=== PATIENT | female | born 1995 | race Asian ===

== ENCOUNTER 2016-08-17 19:40 | Emergency (ER) | payer BC, MEDICAID ==
[2016-08-17] MEDS ORDERED: predniSONE 20 MG TABLET PO STA (21:04)
[2016-08-17] MEDS ORDERED: diphenhydrAMINE 25 MG CAPSULE PO STA (21:04)
[2016-08-17] MEDS ORDERED: FAMOTIDINE 20 MG TABLET PO STA (21:04)
[2016-08-17] MEDS ORDERED: diphenhydrAMINE 25 MG CAPSULE PO ONE (21:11)
[2016-08-17] MEDS ORDERED: FAMOTIDINE 20 MG TABLET ONE (21:12)
[2016-08-17] MEDS ORDERED: predniSONE 20 MG TABLET ONE (21:12)
== END 2016-08-17 22:13 | disposition home or self-care (01) ==
DX: L50.9 Urticaria, unspecified (principal)
CPT/HCPCS: 81025; 99283; 99284; A9270; J7512

== ENCOUNTER 2018-10-31 19:48 | Emergency (ER) | payer BC, MEDICAID ==
--- NOTE | 2018-10-31 22:37 | ED Physician Documentation ---
PD HPI FEMALE - Stated complaint Stated Complaint: FEMALE - Chief complaint Chief Complaint: Abd Pain - Additional information Additional information: 22-year-old female presents the emergency department with a complaint of a hemorrhoid which developed today. No rectal bleeding. No attempts at symptom management. No other area of discomfort. No triggering factors. No relieving factors Review of Systems Constitutional: denies: Fever Eyes: denies: Loss of vision Ears: denies: Ear pain Nose: denies: Congestion GI: denies: Abdominal Pain : reports: Other (rectal pain). denies: Dysuria PD PAST MEDICAL HISTORY - Past Medical History Past Medical History: Yes Cardiovascular: None Endocrine/Autoimmune: None GI: None : None HEENT: None Psych: Anxiety Musculoskeletal: None Derm: None - Past Surgical History Past Surgical History: Yes - Present Medications Home Medications: Ambulatory Orders Medication Instructions Recorded Confirmed Hydrocortisone [Anusol-Hc] 30 gm RC BID PRN #20 cream..g. 10/31/18 - Allergies Allergies/Adverse Reactions: Allergies Allergy/AdvReac Type Severity Reaction Status Date / Time No Known Drug Allergies Allergy Verified 10/31/18 20:03 - Social History Does the pt smoke?: No Smoking Status: Never smoker Does the pt drink ETOH?: No Does the pt have substance abuse?: No - Immunizations Immunizations are current?: Yes - POLST Patient has POLST: No PD ED PE NORMAL - General General: Alert and oriented X 3, No acute distress - HEENT HEENT: Atraumatic, PERRL, EOMI, Ears normal - Abdomen Abdomen: Soft, Non tender - Rectal Rectal: Other (There is a hemorrhoid, which is nonthrombosed it does appear inflamed. There is no active bleeding) - Derm Derm: Normal color - Extremities Extremities: No deformity - Neuro Neuro: Alert and oriented X 3, Normal speech Results - Vitals Vitals: Vital Signs - 24 hr 10/31/18 10/31/18 19:59 22:47 Temperature 36.9 C Heart Rate 100 89 Respiratory 16 Rate Blood Pressure 132/73 H 124/90 H O2 Saturation 100 100 Oxygen O2 Source Room air PD MEDICAL DECISION MAKING - ED course ED course: The patient has an acute hemorrhoid, there is no thrombosis that would benefit from incision and drainage at this point. Presently the patient appears appropriate for discharge and ongoing outpatient management. Patient will follow-up primary care for reevaluation and will return to the emergency department for any worsening or concerns Departure - Departure Disposition: 01 Home, Self Care Clinical Impression: Hemorrhoid Qualifiers: Hemorrhoid type: unspecified Qualified Code(s): K64.9 - Unspecified hemorrhoids Condition: Good Instructions: ED Hemorrhoids Follow-Up: Elen Phillip ARNP [Primary Care Provider] - Within 1 week Prescriptions: Hydrocortisone [Anusol-Hc] 30 gm RC BID PRN #20 cream..g. PRN Reason: Hemorrhoids Comments: Please return to the emergency department for worsening symptoms or any concerns Discharge Date/Time: 10/31/18 22:48
[2018-10-31 22:48] VITALS: BP 124/90
== END 2018-10-31 22:48 | disposition home or self-care (01) ==
LOC: ED 19:48
DX: K64.9 Unspecified hemorrhoids (principal)
CPT/HCPCS: 99282; 99283

== ENCOUNTER 2018-11-11 13:55 | Outpatient (CLI) | payer MEDICAID ==
[2018-11-11 19:08] LABS: THYROID STIMULATING HORMONE 1.73 uIU/mL (0.34-5.60)
[2018-11-11 19:13] LABS: PROLACTIN 24.22 ng/mL
[2018-11-11 19:35] LABS: FOLLICLE STIMULATING HORMONE 1.88 mIU/mL
[2018-11-11 19:36] LABS: LUTEINIZING HORMONE 6.76 mIU/mL
== END 2018-11-11 23:59 | disposition home or self-care (01) ==
LOC: LAB.WCP 13:55
PROVIDERS: ATTEND Obstetrics & Gynecology
DX: E28.2 Polycystic ovarian syndrome (principal)
CPT/HCPCS: 36415; 81599; 82627; 83001; 83002; 84146; 84402; 84403; 84443

== ENCOUNTER 2019-02-28 15:41 | Outpatient (CLI) | payer MEDICAID ==
--- NOTE | 2019-02-28 17:19 | Ultrasound Report ---
Reason: HX OF ECTOPIC , TEST POSITIVE Procedure Date: 02/28/2019 Accession Number: [id number] / [id number] Procedure: US - OB First Trimester CPT Code: FULL RESULT: EXAM: FIRST TRIMESTER OBSTETRIC ULTRASOUND (Less than 11 weeks) EXAM DATE: 02/28/2019 03:50 PM. CLINICAL HISTORY: HX OF ECTOPIC , TEST POSITIVE. LMP: 01/07/2019. COMPARISONS: OB FIRST TRIMESTER 05/15/2016 8:00 PM. TECHNIQUE: Transabdominal and transvaginal ultrasound examination with static image documentation. CLINICAL DATES: EGA 7 weeks 3 days with EMELY 10/14/2019 based on LMP. ASSESSMENT: Gestational Sac: Single intrauterine. Embryo: CRL (crown-rump length) 10 mm = 7 weeks 0 days. Cardiac activity: 155 beats per minute. Yolk sac: 4.3 mm. Amniotic fluid: Not accurately assessed at this gestational age. Early placenta: Not visible at this gestational age. Other: No perigestational fluid collection demonstrated. MATERNAL STRUCTURES: Uterus: Anteverted. Solid structure the posterior uterus measuring 3.7 cm likely reflects a fibroid.. Cervix: Closed. Bilateral ovaries appear unremarkable. Free Fluid: None. Other: None. IMPRESSION: 1. Single viable intrauterine at EGA 7 weeks 0 days with EMELY 10/17/2019 based on crown-rump length, which is concordant with clinical dates. 2. Assigned dating is EMELY 10/14/2019 based on LMP. JAZMÍN
== END 2019-02-28 15:42 | disposition home or self-care (01) ==
LOC: DI 15:41
PROVIDERS: ATTEND Nurse Practitioner Obstetrics & Gynecology
DX: Z32.01 Encounter for pregnancy test, result positive (principal); Z87.59 Personal history of other complications of pregnancy, childbirth and the puerperium
CPT/HCPCS: 76801; 76817

== ENCOUNTER 2019-03-19 12:50 | Outpatient (CLI) | payer MEDICAID ==
[2019-03-19 15:07] LABS: MUDS CUTOFF CONCENTRATIONS CUTOFF CONC BELOW:
[2019-03-19 15:13] LABS: BILIRUBIN,URINE NEGATIVE (NEGATIVE); GLUCOSE, URINE (UA) NEGATIVE (NEGATIVE); KETONES,URINE (UA) NEGATIVE (NEGATIVE); LEUKOCYTE ESTERASE, URINE NEGATIVE (NEGATIVE); NITRITE,URINE NEGATIVE (NEGATIVE); OCCULT BLOOD,URINE NEGATIVE (NEGATIVE); PROTEIN,URINE NEGATIVE (NEGATIVE); UROBILINOGEN,URINE 0.2 (NORMAL) E.U./dL (NORMAL)
[2019-03-19 15:29] LABS: AMORPHOUS SEDIMENT,UR Marked /LPF; BACTERIA,URINE None Seen /HPF (None Seen); CLARITY,URINE CLEAR (CLEAR); RBC,URINE None Seen /HPF (0-5); SQUAMOUS EPITHELIAL CELL,UR MANY Squamous (<= Few)
[2019-03-19 15:31] LABS: AMPHETAMINE SCREEN,URINE NEGATIVE (NEGATIVE); BENZODIAZEPINES SCREEN, URINE NEGATIVE (NEGATIVE); COCAINE SCREEN URINE NEGATIVE (NEGATIVE); METHADONE SCREEN, URINE NEGATIVE (NEGATIVE); METHAMPHETAMINES SCREEN, URINE NEGATIVE (NEGATIVE); OPIATE SCREEN, URINE NEGATIVE (NEGATIVE); OXYCODONE SCREEN, URINE NEGATIVE (NEGATIVE); PROPOXYPHENE SCREEN, URINE NEGATIVE (NEGATIVE); TRICYCLIC ANTIDEPRESSANT,URINE NEGATIVE (NEGATIVE)
[2019-03-19 21:22] LABS: TRICHOMONAS VAGINALIS DNA NEGATIVE (NEGATIVE)
== END 2019-03-19 23:59 | disposition home or self-care (01) ==
LOC: LAB.R 12:50
PROVIDERS: ATTEND Nurse Practitioner Obstetrics & Gynecology
DX: Z36.89 Encounter for other specified antenatal screening (principal)
CPT/HCPCS: 80306; 81001; 87086; 87491; 87591; 87661

== ENCOUNTER 2019-04-16 12:05 | Outpatient (CLI) | payer MEDICAID ==
[2019-04-16 12:46] LABS: BASOPHILS % (AUTO) 0.4 %; EOSINOPHILS # (AUTO) 0.1 10^3/uL (0.0-0.7); EOSINOPHILS % (AUTO) 0.6 %; HGB - HEMOGLOBIN 13.2 g/dL (12.0-16.0); LYMPHOCYTES # (AUTO) 2.7 10^3/uL (1.5-3.5); LYMPHOCYTES % (AUTO) 27.5 %; MEAN CORPUSCULAR HEMOGLOBIN 30.6 pg (27.0-31.0); MEAN CORPUSCULAR HGB CONC 33.5 g/dL (32.0-36.0); MEAN CORPUSCULAR VOLUME 91.2 fL (81.0-99.0); MONOCYTES # (AUTO) 0.6 10^3/uL (0.0-1.0); NEUTROPHILS # (AUTO) 6.5 10^3/uL (1.5-6.6); NEUTROPHILS % (AUTO) 65.1 %; PLT - PLATELET COUNT 258 10^3/uL (130-450); RED BLOOD COUNT 4.32 10^6/uL (4.20-5.40); RED CELL DISTRIBUTION WIDTH 13.9 % (12.0-15.0)
[2019-04-17 11:26] LABS: HEPATITIS C ANTIBODY NON-REACTIVE (NON-REACTIVE)
[2019-04-17 11:27] LABS: HEPATITIS B SURFACE ANTIGEN NON-REACTIVE (NON-REACTIVE)
[2019-04-17 11:42] LABS: HIV AG/AB 4TH GEN NON-REACTIVE (NON-REACTIVE)
== END 2019-04-16 12:06 | disposition home or self-care (01) ==
LOC: LAB 12:05
PROVIDERS: ATTEND Nurse Practitioner Obstetrics & Gynecology
DX: Z36.89 Encounter for other specified antenatal screening (principal)
CPT/HCPCS: 36415; 81599; 85025; 86592; 86762; 86803; 86850; 86900; 86901; 87340; 87389

== ENCOUNTER 2019-05-14 08:00 | Outpatient (CLI) | payer MEDICAID | END 2019-05-14 23:59 | disposition home or self-care (01) | LOC: LAB.R 08:00 | PROVIDERS: ATTEND Nurse Practitioner Obstetrics & Gynecology | DX: R82.79 Other abnormal findings on microbiological examination of urine (principal) | CPT/HCPCS: 87086 ==

== ENCOUNTER 2019-05-15 08:00 | Outpatient (CLI) | payer MEDICAID | END 2019-05-15 08:01 | disposition home or self-care (01) | LOC: LAB.WCP 08:00 | PROVIDERS: ATTEND Nurse Practitioner Obstetrics & Gynecology | DX: Z36.8A Encounter for antenatal screening for other genetic defects (principal) | CPT/HCPCS: 36415; 81511; 81599 ==

== ENCOUNTER 2019-05-26 13:37 | Outpatient (CLI) | payer MEDICAID ==
--- NOTE | 2019-05-28 11:20 | Ultrasound Report ---
Reason: SCREENING Procedure Date: 05/26/2019 Accession Number: [id number] / [id number] Procedure: US - OB Detailed Eval CPT Code: FULL RESULT: EXAM: COMPLETE OBSTETRICAL ULTRASOUND EXAM DATE: 05/26/2019 04:42 PM. CLINICAL HISTORY: anatomic survey. COMPARISON: OB FIRST TRIMESTER 02/28/2019 3:50 PM. TECHNIQUE: Real-time sonographic evaluation of the fetus performed by the wood dowel machine operator. Multiple nutrition representative static images were saved for review. DATING: Established EGA 19 weeks 6 days with EMELY 10/14/2019 based on LMP/working due date. EGA 19 weeks 3 days with EMELY 10/17/2019 based on prior ultrasound. EGA 19 weeks 2 days with EMELY 10/18/2019 based on the current ultrasound. GENERAL EVALUATION [place] . Cardiac activity: 145 bpm. movement: Visualized. Presentation: Cephalic. Placenta: Anterior position. No evidence for previa. Umbilical cord: 3 vessel cord. Central placental cord origin. Amniotic fluid: Subjectively normal. MVP 3.9 cm and JACKIE 14.0 cm. BIOMETRY Bi-Parietal Diameter (BPD): 4.4 cm, 19 weeks 4 days Head Circumference (HC): 16.87 cm, 19 weeks 4 days Abdominal Circumference (AC): 14.19 cm, 19 weeks 4 days Femur Length (FL): 3.0 cm, 19 weeks 3 days Estimated Weight: 296 g, 26.4th percentile for 19 weeks 6 days. ANATOMY The intracranial structures, spine, stomach, abdominal wall and cord insertion, diaphragm, kidneys, bladder, and extremities were visualized and demonstrate no abnormality. The profile, face/nose/lips and cardiac four-chamber view as well as ventricular outflow tracts were not well seen as the fetus stayed spine up with the knees pulled to the chest throughout the majority of the examination. MATERNAL STRUCTURES Uterus: Unremarkable. Cervix: Long and closed. Transabdominal length 4.3 cm. Right ovary/adnexa: Unremarkable. Left ovary/adnexa: Unremarkable. Free fluid: None. IMPRESSION: 1. [place] live intrauterine with gestational age 19 weeks 6 days based on LMP/working due date. 2. Estimated weight is within expected limits for assigned dating. 3. Inadequate visualization of heart and outflow tract as well as face/profile and nasal bone view. No anatomic abnormalities are detected at this time. RADIA
== END 2019-05-26 13:38 | disposition home or self-care (01) ==
LOC: DI 13:37
PROVIDERS: ATTEND Obstetrics & Gynecology
DX: Z36.89 Encounter for other specified antenatal screening (principal)
CPT/HCPCS: 76811

== ENCOUNTER 2019-06-10 13:45 | Outpatient (CLI) | payer MEDICAID ==
[2019-06-11 18:42] LABS: CANDIDA GROUP DNA NEGATIVE (NEGATIVE); CANDIDA KRUSEI DNA NEGATIVE (NEGATIVE); TRICHOMONAS VAGINALIS DNA NEGATIVE (NEGATIVE)
== END 2019-06-10 23:59 | disposition home or self-care (01) ==
LOC: LAB.R 13:45
PROVIDERS: ATTEND Nurse Practitioner Obstetrics & Gynecology
DX: N89.8 Other specified noninflammatory disorders of vagina (principal)
CPT/HCPCS: 87661; 87801

== ENCOUNTER 2019-06-24 11:35 | Outpatient (CLI) | payer MEDICAID ==
--- NOTE | 2019-06-24 16:10 | Ultrasound Report ---
Reason: SUPERVISION OF , F/U FAS Procedure Date: 06/24/2019 Accession Number: [id number] / [id number] Procedure: US - OB F/U or Repeat CPT Code: Final Report FULL RESULT: EXAM: FOLLOW-UP OBSTETRICAL ULTRASOUND EXAM DATE: 06/24/2019 11:51 AM. CLINICAL HISTORY: Supervision of , follow-up anatomic survey. COMPARISON: OB DETAILED EVAL 05/26/2019 2:34 PM. TECHNIQUE: Real-time sonographic evaluation of the fetus performed by the lime kiln worker. Multiple outside energy sales representatives static images were saved for review. DATING: Established EGA 24 weeks 0 days with EMELY 10/14/2019 based on physician stated. EGA 23 weeks 4 days with EMELY 10/17/2019 based on ultrasound 02/28/2019. GENERAL EVALUATION [place] . Cardiac activity: 159 bpm. movement: Visualized. Presentation: Breech. Placenta: Anterior position. Amniotic fluid: Normal. JACKIE 15.3 cm. MVP 4.9 cm. BIOMETRY Not reperformed since 05/26/2019. ANATOMY Normal appearance to profile, coronal face, four-chamber heart view and left ventricular outflow tract. Once again, suboptimal visualization of the right ventricular outflow tract. MATERNAL STRUCTURES Not reevaluated today. IMPRESSION: 1. [place] live intrauterine with gestational age 24 weeks 0 days based on physician dating. 2. Suboptimal visualization of the right ventricular outflow tract. Consider short interval follow-up. 3. Other structures previously not well seen at anatomic survey 05/26/2019 appear normal, as detailed above. RADIA
== END 2019-06-24 11:36 | disposition home or self-care (01) ==
LOC: DI 11:35
PROVIDERS: ATTEND Nurse Practitioner Obstetrics & Gynecology
DX: Z36.89 Encounter for other specified antenatal screening (principal)
CPT/HCPCS: 76816

== ENCOUNTER 2019-07-09 12:33 | Outpatient (CLI) | payer MEDICAID ==
--- NOTE | 2019-07-09 14:56 | Ultrasound Report ---
Reason: OB FAS F/U, SUPERVISION OF Procedure Date: 07/09/2019 Accession Number: [id number] / [id number] Procedure: US - OB F/U or Repeat CPT Code: Final Report FULL RESULT: EXAM: FOLLOW-UP OBSTETRICAL ULTRASOUND EXAM DATE: 07/09/2019 02:33 PM. CLINICAL HISTORY: OB follow-up, targeted anatomy (incomplete visualization of right ventricular outflow tract). COMPARISON: 06/24/2019. TECHNIQUE: Real-time sonographic evaluation of the fetus performed by the value stream leader. Multiple representative government relations static images were saved for review. FINDINGS: GENERAL EVALUATION [place] . Cardiac activity: 153 bpm. movement: Visualized. Presentation: Cephalic. Placenta: Anterior position. Amniotic fluid: Normal. JACKIE 14.5 cm. MVP 4.0 cm. ANATOMY Targeted evaluation of the heart confirms normal RVOT, LVOT and four-chamber heart. IMPRESSION: 1. Live intrauterine fetus in cephalic presentation. 2. Normal RVOT. RADIA
== END 2019-07-09 12:34 | disposition home or self-care (01) ==
LOC: DI 12:33
PROVIDERS: ATTEND Nurse Practitioner Obstetrics & Gynecology
DX: Z34.90 Encounter for supervision of normal pregnancy, unspecified, unspecified trimester (principal)
CPT/HCPCS: 76816

== ENCOUNTER 2019-07-11 08:00 | Outpatient (CLI) | payer MEDICAID ==
[2019-07-11 17:35] LABS: CANDIDA GROUP DNA NEGATIVE (NEGATIVE); CANDIDA KRUSEI DNA NEGATIVE (NEGATIVE); TRICHOMONAS VAGINALIS DNA NEGATIVE (NEGATIVE)
== END 2019-07-11 23:59 | disposition home or self-care (01) ==
LOC: LAB.R 08:00
PROVIDERS: ATTEND Nurse Practitioner Obstetrics & Gynecology
DX: N76.0 Acute vaginitis (principal)
CPT/HCPCS: 87661; 87801

== ENCOUNTER 2019-09-16 08:00 | Outpatient (CLI) | payer MEDICAID ==
[2019-09-16 18:29] LABS: TRICHOMONAS VAGINALIS DNA NEGATIVE (NEGATIVE)
== END 2019-09-16 23:59 | disposition home or self-care (01) ==
LOC: LAB.R 08:00
PROVIDERS: ATTEND Nurse Practitioner Obstetrics & Gynecology
DX: Z36.85 Encounter for antenatal screening for Streptococcus B (principal); Z11.3 Encounter for screening for infections with a predominantly sexual mode of transmission
CPT/HCPCS: 87491; 87591; 87661; 87797

== ENCOUNTER 2019-10-01 14:24 | Outpatient (CLI) | payer MEDICAID ==
[2019-10-01 14:45] LABS: HGB - HEMOGLOBIN 11.1 g/dL (12.0-16.0); MEAN CORPUSCULAR HEMOGLOBIN 25.8 pg (27.0-31.0); MEAN CORPUSCULAR HGB CONC 30.8 g/dL (32.0-36.0); MEAN CORPUSCULAR VOLUME 83.5 fL (81.0-99.0); MEAN PLATELET VOLUME 9.5 fL (7.9-10.8); RED BLOOD COUNT 4.31 10^6/uL (4.20-5.40); RED CELL DISTRIBUTION WIDTH 13.6 % (12.0-15.0); WHITE BLOOD COUNT 10.8 x10^3/uL (4.8-10.8)
[2019-10-01 15:00] LABS: ALBUMIN 2.6 g/dL (3.2-5.5); ALBUMIN/GLOBULIN RATIO 0.7 (1.0-2.2); BILIRUBIN,TOTAL 0.2 mg/dL (0.2-1.0); CALCIUM 8.7 mg/dL (8.5-10.3); CREATININE 0.7 mg/dL (0.4-1.0); TOTAL PROTEIN 6.1 g/dL (6.7-8.2); URIC ACID 4.9 mg/dL (2.6-7.2)
== END 2019-10-01 14:25 | disposition home or self-care (01) ==
LOC: LAB 14:24
PROVIDERS: ATTEND Nurse Practitioner Obstetrics & Gynecology
DX: R03.0 Elevated blood-pressure reading, without diagnosis of hypertension (principal)
CPT/HCPCS: 36415; 80053; 84550; 85027

== ENCOUNTER 2019-10-03 07:00 | Outpatient (CLI) | payer MEDICAID ==
[2019-10-03 14:05] LABS: CREATININE,URINE 80.6 mg/dL
== END 2019-10-03 23:59 | disposition home or self-care (01) ==
LOC: LAB.R 07:00
PROVIDERS: ATTEND Nurse Practitioner Obstetrics & Gynecology
DX: R03.0 Elevated blood-pressure reading, without diagnosis of hypertension (principal)
CPT/HCPCS: 82570; 84156

== ENCOUNTER 2019-10-03 11:55 | Outpatient (CLI) | payer MEDICAID ==
--- NOTE | 2019-10-03 12:15 | PROCEDURE REPORT ---
- HPI Diagnosis/Indication for NST: Gestational Hypertension - NST Procedure Performed 10/03/2019 Read 10/03/2019 NST reactive FHR baseline 150, moderate variability, + accels, no decels Pt released home with precautions and specifically discussed warning s/sx of preeclampsia and when to present. Advised her to keep her scheduled appt on Sunday10/06/2019 and return sooner PRN. Encouraged her to keep her phone on her as her preliminary PIH labs were WNL however her 24 hour urine is pending. Pt verbalized understanding and agrees to above plan. She denies further questions or concerns at this time. FINAL DIAGNOSIS: Gestational hypertension @ 38wks gestation
[2019-10-03 12:34] VITALS: BP 127/87
== END 2019-10-03 12:45 | disposition home or self-care (01) ==
LOC: WFO 11:55 → FBP 11:56 → WFO 12:45
PROVIDERS: ATTEND Nurse Practitioner Obstetrics & Gynecology
DX: O13.3 Gestational [pregnancy-induced] hypertension without significant proteinuria, third trimester (principal); Z3A.38 38 weeks gestation of pregnancy
CPT/HCPCS: 59025; 82570; 84156

== ENCOUNTER 2020-04-13 08:00 | Outpatient (CLI) | payer MEDICAID | END 2020-04-13 23:59 | disposition home or self-care (01) | LOC: LAB.R 08:00 | PROVIDERS: ATTEND Advanced Practice Midwife | DX: R30.0 Dysuria (principal) | CPT/HCPCS: 87086 ==

== ENCOUNTER → 2020-05-06 | Outpatient (CLI) | payer MEDICAID | LOC: LAB.WCP 08:00 | PROVIDERS: ATTEND Advanced Practice Midwife | DX: R30.0 Dysuria (principal) | CPT/HCPCS: 87086 ==

== ENCOUNTER 2023-09-28 14:22 | Outpatient (CLI) | payer MEDICAID ==
[2023-09-28 15:16] LABS: THYROID STIMULATING HORMONE 1.92 uIU/mL (0.34-5.60)
[2023-09-28 20:27] LABS: ESTIMATED AVERAGE GLUCOSE 117 mg/dL (70-100); HEMOGLOBIN A1c% 5.7 % (4.27-6.07)
== END 2023-09-28 14:23 | disposition home or self-care (01) ==
LOC: LAB 14:22
PROVIDERS: ATTEND Nurse Practitioner Obstetrics & Gynecology
DX: E66.9 Obesity, unspecified (principal)
CPT/HCPCS: 36415; 83036; 84439; 84443

== ENCOUNTER 2023-11-15 20:09 | Emergency (ER) | payer MEDICAID ==
--- NOTE | 2023-11-15 21:09 | ED Physician Documentation ---
History of Present Illness - Stated complaint Stated Complaint: RASH ON NECK - Chief complaint Chief Complaint: General - Additonal information Additional information: 27-year-old female presents emergency department for raised rash to her chest, neck, right ear. Patient says that she has had a history of this happening before no history of anaphylaxis she has been unable to determine the organism that is causing these rashes. She has not seen a company marker for this and she has not had any allergy testing. She denies any recent new product any new exposures to other chemicals that she could possibly unaware of she says that she is has no shortness of breath no difficulty breathing no angioedema and says that her throat and tongue feel normal. She is not taking any wwph-pti-[id number] medications for this rash. PD PAST MEDICAL HISTORY - Past Medical History Past Medical History: Yes Cardiovascular: None Respiratory: None Neuro: None Endocrine/Autoimmune: None GI: None TRAY LINE WORKER: None : None HEENT: None Psych: Anxiety Musculoskeletal: None Derm: None - Past Surgical History Past Surgical History: Yes /TRAY LINE WORKER: Other - Present Medications Home Medications: Ambulatory Orders Medication Instructions Recorded Confirmed No Known Home Medications 11/15/23 11/15/23 - Allergies Allergies/Adverse Reactions: Allergies Allergy/AdvReac Type Severity Reaction Status Date / Time No Known Drug Allergies Allergy Verified 11/15/23 20:18 - Social History Does the pt smoke?: No Smoking Status: Never smoker Does the pt drink ETOH?: No Does the pt have substance abuse?: No - Immunizations Immunizations are current?: Yes - POLST Patient has POLST: No PD ED PE NORMAL - Vitals Vital signs reviewed: Yes - General General: Alert and oriented X 3, No acute distress, Well developed/nourished - HEENT HEENT: Atraumatic, Moist mucous membranes, Pharynx benign, Other (Right External ear erythema mild inflammation) - Neck Neck: No adenopathy - Cardiac Cardiac: RRR, No murmur, No gallop - Respiratory Respiratory: No respiratory distress - Abdomen Abdomen: Normal bowel sounds, Soft, Non tender - Derm Derm: Normal color, Warm and dry, Other (Urticarial rash to chest up neck and right external ear swelling and inflammation.). No: No rash - Psych Psych: Normal mood, Normal affect Results - Vitals Vitals: Vital Signs - 24 hr 11/15/23 11/15/23 20:13 21:27 Temperature 36.3 C L Heart Rate 103 H 66 Respiratory 16 18 Rate Blood Pressure 127/81 H 110/66 O2 Saturation 100 98 Oxygen O2 Source Room air PD Medical Decision Making - ED course ED course: This patient who presents with rash for unknown cause, consistent with urticaria. History and exam findings not consistent with dangerous etiologies of rash such as SJS/TEN, or secondary dangerous causes such as petechial rashes from thrombocytopenia or rickettsial infections. Rash does not appear to have any signs of anaphylaxis with it. Plan at this time is to treat symptomaticallyWith Zyrtec and famotidine, instruct to follow up with PCP or derm PRN, Patient was given local dermatology office phone number. She was also told to scrap picker Zyrtec and take daily as well as some anza-zrg-hehrwrg hydrocortisone cream to put over urticaria. She was given strict ER return precautions all questions answered and safe for discharge at this time. Departure - Departure Disposition: 01 Home, Self Care Clinical Impression: Urticaria Instructions: ED Urticaria Comments: Thank you for trusting us with your care. I do not believe that you are experiencing signs or symptoms of anaphylaxis. I am unsure what is causing this rash but I think he greatly benefit from getting some allergy testing done.[place] [phone] I would call them and see if they are able to do any allergy testing for you.We have given you famotidine and Zyrtec here in the emergency department going home tonight it is okay for you to take some Benadryl. Tomorrow you can buy some fqck-olg-fwsgery topical ointment such as hydrocortisone but can put on over your hives to help with itching sensation. I would also buy rqjg-ucr-zpmdsat Zyrtec you will take this once a day for this rash. Please come back to the emergency department if you are starting to develop any shortness of breath, chest pain, difficulty breathing, or any other concerning symptoms. Forms: PCP List Discharge Date/Time: 11/15/23 21:27
[2023-11-15] MEDS: CETIRIZINE 10 MG TABLET PO STA (21:16)
[2023-11-15] MEDS: FAMOTIDINE 20 MG TABLET PO STA (21:16)
[2023-11-15 21:36] VITALS: BP 110/66; O2SAT 98
== END 2023-11-15 21:27 | disposition home or self-care (01) ==
LOC: ED 20:09
DX: L50.9 Urticaria, unspecified (principal)
CPT/HCPCS: 99282; 99283; A9270